=== PATIENT | male | born 1945 | race Two or more races ===

== ENCOUNTER 2017-03-02 14:13 | Outpatient (CLI) | payer OTHER ==
[~2017-03-02 14:13] MED LIST: ANAPROX PO; CIPROFLOXACIN750 MG PO; CLONAZEPAM1 MG PO; DOCUSATE SODIU100 MG PO; HYZAAR 100/25 T1 TAB; MAXIMUM DAILY1 EACH PO; NEURONTIN PO; PERCOCET 5/3251 TAB PO; [UNRECOGNIZED DRUG - OTHER] PO
== END 2017-03-02 14:25 | disposition home or self-care (01) ==
LOC: RAD 14:13
DX: M54.2 Cervicalgia (principal)

== ENCOUNTER 2017-03-03 09:06 | Outpatient (CLI) | payer OTHER | END 2017-03-03 16:54 | disposition home or self-care (01) | LOC: SONOGRAMA 09:06 | DX: M25.542 Pain in joints of left hand (principal) ==

== ENCOUNTER 2017-03-28 09:01 | Outpatient (CLI) | payer OTHER | END 2017-03-28 09:33 | disposition home or self-care (01) | LOC: RAD 09:01 | DX: M06.89 Other specified rheumatoid arthritis, multiple sites (principal) ==

== ENCOUNTER 2017-08-21 07:31 | Outpatient (CLI) | payer OTHER ==
[~2017-08-21 07:31] MED LIST changes: +NABUMETONE750 MG PO; +VOLTAREN100 GM TOP
== END 2017-08-21 07:41 | disposition home or self-care (01) ==
LOC: SONOGRAMA 07:31
DX: R10.13 Epigastric pain (principal)

== ENCOUNTER → 2017-08-26 | Outpatient (CLI) | payer OTHER | END | disposition home or self-care (01) | LOC: NUCLEAR 08-18 14:00 | DX: M85.89 Other specified disorders of bone density and structure, multiple sites (principal); M81.0 Age-related osteoporosis without current pathological fracture ==

== ENCOUNTER 2017-11-17 12:58 | Outpatient (CLI) | payer OTHER | END 2017-11-17 13:11 | disposition home or self-care (01) | LOC: RAD 501 12:58 | DX: M79.641 Pain in right hand (principal) ==

== ENCOUNTER → 2018-05-18 | Outpatient (CLI) | payer OTHER | END | disposition home or self-care (01) | LOC: RAD 501 13:34 | DX: M85.851 Other specified disorders of bone density and structure, right thigh (principal) ==

== ENCOUNTER 2018-06-02 14:25 | Outpatient (CLI) | payer OTHER | END 2018-06-02 14:28 | disposition home or self-care (01) | LOC: LAB 14:25 | DX: M48.07 Spinal stenosis, lumbosacral region (principal); Z51.81 Encounter for therapeutic drug level monitoring ==

== ENCOUNTER 2018-06-04 09:48 | Outpatient (CLI) | payer OTHER | END 2018-06-04 16:36 | disposition home or self-care (01) | LOC: MRI 09:48 | DX: M54.5 Low back pain (principal); M54.30 Sciatica, unspecified side | CPT/HCPCS: 72158; A9575 ==

== ENCOUNTER 2019-01-25 11:24 | Outpatient (CLI) | payer OTHER | END 2019-01-25 12:28 | disposition home or self-care (01) | LOC: RAD 11:24 | DX: M54.2 Cervicalgia (principal) ==

== ENCOUNTER 2019-02-24 09:46 | Outpatient (CLI) | payer OTHER | END 2019-02-24 15:00 | disposition home or self-care (01) | LOC: RAD 09:46 | DX: M54.2 Cervicalgia (principal) ==

== ENCOUNTER → 2019-02-24 10:00 | Outpatient (CLI) | payer OTHER | END | disposition home or self-care (01) | LOC: RAD | DX: M54.2 Cervicalgia (principal) ==

== ENCOUNTER 2019-03-29 14:25 | Outpatient (CLI) | payer OTHER | END 2019-03-29 15:36 | disposition home or self-care (01) | LOC: MRI 14:25 | DX: M54.2 Cervicalgia (principal) | CPT/HCPCS: 72141 ==

== ENCOUNTER 2019-04-07 08:19 | Outpatient (CLI) | payer OTHER | END 2019-04-07 10:01 | disposition home or self-care (01) | LOC: MRI 08:19 | DX: M25.512 Pain in left shoulder (principal) | CPT/HCPCS: 73221 ==

== ENCOUNTER 2019-08-01 08:18 | Outpatient (CLI) | payer OTHER | END 2019-08-01 08:19 | disposition home or self-care (01) | LOC: LAB 08:18 → RAD 08:18 → LAB 08:19 | PROVIDERS: ATTEND Internal Medicine Geriatric Medicine | DX: M25.561 Pain in right knee (principal); M25.562 Pain in left knee; E87.1 Hypo-osmolality and hyponatremia; I11.9 Hypertensive heart disease without heart failure ==

== ENCOUNTER 2019-09-14 07:56 | Outpatient (CLI) | payer OTHER | END 2019-09-14 15:00 | disposition home or self-care (01) | LOC: LAB 07:56 | PROVIDERS: ATTEND Internal Medicine Geriatric Medicine | DX: D50.8 Other iron deficiency anemias (principal); E03.8 Other specified hypothyroidism; E78.2 Mixed hyperlipidemia; I11.9 Hypertensive heart disease without heart failure; E56.8 Deficiency of other vitamins; N39.0 Urinary tract infection, site not specified; Z12.11 Encounter for screening for malignant neoplasm of colon; E55.9 Vitamin D deficiency, unspecified; N19 Unspecified kidney failure; E11.9 Type 2 diabetes mellitus without complications; R80.8 Other proteinuria; C18.0 Malignant neoplasm of cecum; K92.1 Melena; M85.88 Other specified disorders of bone density and structure, other site; E21.2 Other hyperparathyroidism; E88.89 Other specified metabolic disorders; M81.8 Other osteoporosis without current pathological fracture; E56.1 Deficiency of vitamin K ==

== ENCOUNTER 2019-09-23 11:25 | Outpatient (CLI) | payer OTHER | END 2019-09-23 11:42 | disposition home or self-care (01) | LOC: NUCLEAR 11:25 | PROVIDERS: ATTEND Orthopaedic Surgery | DX: M81.0 Age-related osteoporosis without current pathological fracture (principal) ==

== ENCOUNTER 2019-09-29 13:05 | Outpatient (CLI) | payer OTHER | END 2019-09-29 15:00 | disposition home or self-care (01) | LOC: LAB 13:05 | PROVIDERS: ATTEND Orthopaedic Surgery | DX: M85.88 Other specified disorders of bone density and structure, other site (principal); E21.2 Other hyperparathyroidism; E88.89 Other specified metabolic disorders; M81.8 Other osteoporosis without current pathological fracture; E56.1 Deficiency of vitamin K ==

== ENCOUNTER 2019-10-04 15:32 | Emergency (ER) | payer OTHER ==
[~2019-10-04] VITALS: Ht 172.7 cm; Wt 68.0 kg
== END 2019-10-04 21:06 | disposition home or self-care (01) ==
LOC: ER 15:32
DX: B34.9 Viral infection, unspecified (principal); Z20.828 Contact with and (suspected) exposure to other viral communicable diseases

== ENCOUNTER 2020-01-11 08:22 | Outpatient (CLI) | payer OTHER | END 2020-01-11 08:29 | disposition home or self-care (01) | LOC: LAB 08:22 | PROVIDERS: ATTEND Internal Medicine Geriatric Medicine | DX: D50.8 Other iron deficiency anemias (principal); E03.8 Other specified hypothyroidism; E78.2 Mixed hyperlipidemia; I11.9 Hypertensive heart disease without heart failure; E56.8 Deficiency of other vitamins; N39.0 Urinary tract infection, site not specified; Z12.11 Encounter for screening for malignant neoplasm of colon; R19.5 Other fecal abnormalities; E55.9 Vitamin D deficiency, unspecified; N19 Unspecified kidney failure; E11.9 Type 2 diabetes mellitus without complications; R80.8 Other proteinuria; C18.0 Malignant neoplasm of cecum ==

== ENCOUNTER → 2020-03-14 | Outpatient (CLI) | payer OTHER | END | disposition home or self-care (01) | LOC: PPH VACUNA | PROVIDERS: ATTEND Emergency Medicine Pediatric Emergency Medicine | DX: Z23 Encounter for immunization (principal) ==

== ENCOUNTER 2020-07-21 08:00 | Outpatient (CLI) | payer OTHER | END 2020-07-21 08:31 | disposition home or self-care (01) | LOC: LAB 08:00 | PROVIDERS: ATTEND Orthopaedic Surgery | DX: E55.9 Vitamin D deficiency, unspecified (principal); M85.9 Disorder of bone density and structure, unspecified; E21.3 Hyperparathyroidism, unspecified; M81.8 Other osteoporosis without current pathological fracture; E56.1 Deficiency of vitamin K; E88.9 Metabolic disorder, unspecified ==

== ENCOUNTER 2020-08-18 11:09 | Outpatient (CLI) | payer OTHER | END 2020-08-18 18:00 | disposition home or self-care (01) | LOC: LAB 11:09 | PROVIDERS: ATTEND Urology | DX: N40.0 Benign prostatic hyperplasia without lower urinary tract symptoms (principal); R97.20 Elevated prostate specific antigen [PSA] ==

== ENCOUNTER 2020-11-27 07:35 | Outpatient (CLI) | payer OTHER | END 2020-11-27 18:00 | disposition home or self-care (01) | LOC: LAB 07:35 | PROVIDERS: ATTEND Internal Medicine Geriatric Medicine | DX: E03.8 Other specified hypothyroidism (principal); D50.8 Other iron deficiency anemias; E78.2 Mixed hyperlipidemia; I11.9 Hypertensive heart disease without heart failure; E56.8 Deficiency of other vitamins; N39.0 Urinary tract infection, site not specified; Z12.11 Encounter for screening for malignant neoplasm of colon; R19.5 Other fecal abnormalities; E55.9 Vitamin D deficiency, unspecified; N19 Unspecified kidney failure; E11.9 Type 2 diabetes mellitus without complications; R80.8 Other proteinuria ==

== ENCOUNTER → 2020-11-28 08:54 | Outpatient (CLI) | payer OTHER | END | disposition home or self-care (01) | LOC: LAB 08:54 | PROVIDERS: ATTEND Internal Medicine Geriatric Medicine | DX: D50.8 Other iron deficiency anemias (principal); E03.8 Other specified hypothyroidism; E78.2 Mixed hyperlipidemia; I11.9 Hypertensive heart disease without heart failure; E56.8 Deficiency of other vitamins; N39.0 Urinary tract infection, site not specified; Z12.11 Encounter for screening for malignant neoplasm of colon; R19.5 Other fecal abnormalities; E55.9 Vitamin D deficiency, unspecified; N28.89 Other specified disorders of kidney and ureter; E11.9 Type 2 diabetes mellitus without complications; R80.8 Other proteinuria; C18.0 Malignant neoplasm of cecum ==

== ENCOUNTER → 2020-12-06 08:59 | Outpatient (CLI) | payer OTHER | END | disposition home or self-care (01) | LOC: LAB 08:59 | PROVIDERS: ATTEND Psychiatry & Neurology Clinical Neurophysiology | DX: E78.2 Mixed hyperlipidemia (principal); E03.3 Postinfectious hypothyroidism; E53.8 Deficiency of other specified B group vitamins; G31.84 Mild cognitive impairment of uncertain or unknown etiology; G45.4 Transient global amnesia; R56.9 Unspecified convulsions ==

== ENCOUNTER 2021-04-04 09:29 | Outpatient (CLI) | payer OTHER | END 2021-04-04 09:35 | disposition home or self-care (01) | LOC: RAD 09:29 | PROVIDERS: ATTEND Ophthalmology | DX: Z98.41 Cataract extraction status, right eye (principal); H25.011 Cortical age-related cataract, right eye ==

== ENCOUNTER 2021-05-13 08:00 | Outpatient (CLI) | payer OTHER | END 2021-05-13 08:30 | disposition home or self-care (01) | LOC: PPH VACUNA 08:00 | PROVIDERS: ATTEND Emergency Medicine Pediatric Emergency Medicine | DX: Z23 Encounter for immunization (principal) ==

== ENCOUNTER 2021-06-11 15:41 | Emergency (ER) | payer OTHER ==
[~2021-06-11] VITALS: Ht 172.7 cm; Wt 68.0 kg
== END 2021-06-11 17:29 | disposition home or self-care (01) ==
LOC: ER 15:41
DX: S01.81XA Laceration without foreign body of other part of head, initial encounter (principal); W18.30XA Fall on same level, unspecified, initial encounter; Y93.9 Activity, unspecified; Y92.488 Other paved roadways as the place of occurrence of the external cause; Y99.9 Unspecified external cause status

== ENCOUNTER 2021-06-20 08:06 | Emergency (ER) | payer OTHER ==
[~2021-06-20] VITALS: Ht 172.7 cm; Wt 68.0 kg
== END 2021-06-20 09:14 | disposition home or self-care (01) ==
LOC: ER 08:06
DX: Z48.02 Encounter for removal of sutures (principal)

== ENCOUNTER 2021-09-17 09:08 | Outpatient (CLI) | payer OTHER | END 2021-09-17 09:11 | disposition home or self-care (01) | LOC: NUCLEAR 09:08 | PROVIDERS: ATTEND Internal Medicine Geriatric Medicine | DX: M81.0 Age-related osteoporosis without current pathological fracture (principal); M15.0 Primary generalized (osteo)arthritis ==

== ENCOUNTER 2021-10-02 07:11 | Outpatient (CLI) | payer OTHER | END 2021-10-02 07:13 | disposition home or self-care (01) | LOC: NUCLEAR 07:11 | PROVIDERS: ATTEND Internal Medicine Geriatric Medicine | DX: M19.90 Unspecified osteoarthritis, unspecified site (principal) ==

== ENCOUNTER 2021-10-21 11:01 | Outpatient (CLI) | payer OTHER | END 2021-10-21 11:11 | disposition home or self-care (01) | LOC: PPH VACUNA 11:01 | PROVIDERS: ATTEND Emergency Medicine Pediatric Emergency Medicine | DX: Z23 Encounter for immunization (principal) ==

== ENCOUNTER 2021-11-12 07:48 | Outpatient (CLI) | payer OTHER | END 2021-11-12 08:08 | disposition home or self-care (01) | LOC: LAB 07:48 | PROVIDERS: ATTEND Internal Medicine Geriatric Medicine | DX: D64.9 Anemia, unspecified (principal); M10.9 Gout, unspecified; M19.90 Unspecified osteoarthritis, unspecified site; M85.9 Disorder of bone density and structure, unspecified; E83.42 Hypomagnesemia; E56.1 Deficiency of vitamin K; E88.9 Metabolic disorder, unspecified; M81.8 Other osteoporosis without current pathological fracture; E27.40 Unspecified adrenocortical insufficiency; D50.9 Iron deficiency anemia, unspecified; D03.9 Melanoma in situ, unspecified; E78.2 Mixed hyperlipidemia; I11.9 Hypertensive heart disease without heart failure; E56.8 Deficiency of other vitamins; N39.0 Urinary tract infection, site not specified; Z12.11 Encounter for screening for malignant neoplasm of colon; R19.5 Other fecal abnormalities; N19 Unspecified kidney failure; E11.9 Type 2 diabetes mellitus without complications ==

== ENCOUNTER 2021-12-03 08:07 | Outpatient (CLI) | payer OTHER | END 2021-12-03 08:14 | disposition home or self-care (01) | LOC: LAB 08:07 | PROVIDERS: ATTEND Specialist | DX: J06.9 Acute upper respiratory infection, unspecified (principal) ==

== ENCOUNTER 2022-04-11 09:56 | Outpatient (CLI) | payer OTHER | END 2022-04-11 10:08 | disposition home or self-care (01) | LOC: TOM 09:56 | PROVIDERS: ATTEND Internal Medicine Geriatric Medicine | DX: K59.00 Constipation, unspecified (principal); C18.9 Malignant neoplasm of colon, unspecified ==

== ENCOUNTER 2022-07-03 07:10 | Outpatient (CLI) | payer OTHER | END 2022-07-03 07:12 | disposition home or self-care (01) | LOC: LAB 07:10 | PROVIDERS: ATTEND Internal Medicine Geriatric Medicine | DX: D50.9 Iron deficiency anemia, unspecified (principal); E03.9 Hypothyroidism, unspecified; E78.2 Mixed hyperlipidemia; E11.9 Type 2 diabetes mellitus without complications; N39.0 Urinary tract infection, site not specified; Z12.11 Encounter for screening for malignant neoplasm of colon; R19.5 Other fecal abnormalities; E55.9 Vitamin D deficiency, unspecified; N19 Unspecified kidney failure ==

== ENCOUNTER 2022-10-09 07:49 | Outpatient (CLI) | payer OTHER | END 2022-10-09 07:57 | disposition home or self-care (01) | LOC: TOM 07:49 | PROVIDERS: ATTEND Otolaryngology Facial Plastic Surgery | DX: M95.0 Acquired deformity of nose (principal); J34.2 Deviated nasal septum; J32.8 Other chronic sinusitis; R09.82 Postnasal drip; R09.81 Nasal congestion; J37.0 Chronic laryngitis ==

== ENCOUNTER 2022-12-02 10:28 | Outpatient (CLI) | payer OTHER | END 2022-12-02 10:33 | disposition home or self-care (01) | LOC: MAMO-SONO 10:28 | PROVIDERS: ATTEND Internal Medicine Geriatric Medicine | DX: Z12.31 Encounter for screening mammogram for malignant neoplasm of breast (principal); N63.0 Unspecified lump in unspecified breast; N64.4 Mastodynia; N60.12 Diffuse cystic mastopathy of left breast; N60.11 Diffuse cystic mastopathy of right breast ==

== ENCOUNTER 2023-09-28 07:27 | Outpatient (CLI) | payer OTHER ==
[~2023-09-28 07:27] MED LIST changes: +GABAPENTIN300 M2 PO
== END 2023-09-28 07:34 | disposition home or self-care (01) ==
LOC: SONOGRAMA 07:27
PROVIDERS: ATTEND Urology
DX: N31.0 Uninhibited neuropathic bladder, not elsewhere classified (principal)

== ENCOUNTER 2024-01-20 11:02 | Outpatient (CLI) | payer OTHER | END 2024-01-20 11:13 | disposition home or self-care (01) | LOC: NUCLEAR 11:02 | PROVIDERS: ATTEND Internal Medicine Rheumatology | DX: M81.0 Age-related osteoporosis without current pathological fracture (principal) ==

== ENCOUNTER → 2024-03-02 | Outpatient (CLI) | payer OTHER | END | disposition home or self-care (01) | LOC: SONOGRAMA 11:44 | PROVIDERS: ATTEND Urology | DX: N40.0 Benign prostatic hyperplasia without lower urinary tract symptoms (principal); R97.20 Elevated prostate specific antigen [PSA] ==

== ENCOUNTER 2025-01-17 10:55 | Outpatient (CLI) | payer OTHER ==
[2025-01-17 12:09] LABS: CREATININE SERUM 0.71 mg/dL (0.70-1.30)
== END 2025-01-17 11:16 | disposition home or self-care (01) ==
LOC: LAB 10:55
PROVIDERS: ATTEND Radiology Diagnostic Radiology
DX: M75.100 Unspecified rotator cuff tear or rupture of unspecified shoulder, not specified as traumatic (principal)

== ENCOUNTER 2025-01-17 13:09 | Outpatient (CLI) | payer OTHER | END 2025-01-17 13:21 | disposition home or self-care (01) | LOC: MRI 13:09 | PROVIDERS: ATTEND Specialist | DX: M75.101 Unspecified rotator cuff tear or rupture of right shoulder, not specified as traumatic (principal) | CPT/HCPCS: 73220; Q9965; 73223 ==